=== PATIENT | female | born 1990 ===

== ENCOUNTER 2020-10-30 07:48 | Emergency (ER) | payer BC ==
[2020-10-30] MEDS ORDERED: Benzocaine 20% Spray 60 ML CAN ONE (08:54)
== END 2020-10-30 09:30 | disposition home or self-care (01) ==
LOC: ERS 07:48
DX: S92.532A Displaced fracture of distal phalanx of left lesser toe(s), initial encounter for closed fracture (principal); F17.220 Nicotine dependence, chewing tobacco, uncomplicated; W20.8XXA Other cause of strike by thrown, projected or falling object, initial encounter